=== PATIENT | female | born 1985 | race Caucasian/White ===

== ENCOUNTER 2017-07-27 13:36 | Inpatient (IN) | payer OTHER ==
[~2017-07-27] VITALS: Ht 160 cm; Wt 66.7 kg
[2017-07-30] MEDS ORDERED: PREN1TAB80 PO (04:12)
[2017-07-30 04:14] VITALS: BP 135/94
[2017-07-30] MEDS ORDERED: RINGERS SOLUTION,LACTATED 1,000 ML IV PRN (04:25)
[2017-07-30] MEDS ORDERED: OXYTOCIN 30 UNITS/LACT RINGERS 500 ML IV ONE (04:25)
[2017-07-30] MEDS ORDERED: RINGERS SOLUTION,LACTATED 1,000 ML IV SCH (04:25)
[2017-07-30] MEDS ORDERED: METOCLOPRAMIDE HCL 5 MG/ML 2 ML VIAL IVP PRN (04:30)
[2017-07-30] MEDS ORDERED: CITRIC ACID/SODIUM CITRATE 30 ML SOLUTION UDCUP PO PRN (04:30)
[2017-07-30] MEDS ORDERED: FentaNYL CITRATE-PF 100 MCG/2 ML VIAL IVP PRN ×6 (04:30→06:30)
[2017-07-30] MEDS ORDERED: LIDOCAINE HCL/PF 2% 5 ML VIAL ONE (05:09)
[2017-07-30] MEDS ORDERED: BUPIVACAINE HCL/PF 0.25% 10 ML VIAL ONE (05:09)
[2017-07-30] MEDS ORDERED: FentaNYL/BUPIV 0.125%/NS/PF 0 ML ED ONE (05:10)
[2017-07-30 05:26] LABS: BASOPHILS # (AUTO) 0.04 K/uL (0.00-0.20); BASOPHILS % (AUTO) 0.3 % (0.0-2.0); EOSINOPHILS # (AUTO) 0.03 K/uL (0.00-0.70); HEMATOCRIT 35.1 % (36-46); LYMPHOCYTES # (AUTO) 2.3 K/uL (1.0-4.8); LYMPHOCYTES % (AUTO) 17.4 % (22.0-44.0); MEAN CORPUSCULAR HEMOGLOBIN 31.3 pg (26.0-34.0); MEAN CORPUSCULAR HGB CONC 34.1 G/dL (31.0-37.0); MEAN CORPUSCULAR VOLUME 92 fL (80-100); MONOCYTES # (AUTO) 0.4 K/uL (0.1-1.0); MONOCYTES % (AUTO) 2.9 % (2.0-9.0); NEUTROPHILS # (AUTO) 10.4 K/uL (1.8-7.7); NEUTROPHILS % (AUTO) 79.1 % (40.0-70.0); RED BLOOD CELL COUNT(AUTO) 3.82 MIL/uL (4.00-5.20); RED CELL DISTRIBUTION WIDTH 12.8 % (11.5-14.5); WHITE BLOOD COUNT (AUTO) 13.2 K/uL (4.5-11.0)
[2017-07-30] MEDS ORDERED: TERBUTALINE SULFATE 1 MG/ML VIAL ONE (05:36)
[2017-07-30] MEDS ORDERED: CeFAZolin 2 GM/DEXTROSE 50 ML IV ONE (05:49)
[2017-07-30] MEDS ORDERED: FentaNYL CITRATE-PF 100 MCG/2 ML VIAL ONE (06:19)
[2017-07-30] MEDS ORDERED: NALOXONE HCL 0.4 MG/ML VIAL IVP PRN (06:30)
[2017-07-30] MEDS ORDERED: PROMETHAZINE HCL 12.5 MG in SODIUM CHLORIDE 0.9% 50 ML IV PRN (06:30)
[2017-07-30] MEDS ORDERED: MEPERIDINE-PF 25 MG/ML SYRINGE IVP PRN (06:30)
[2017-07-30] MEDS ORDERED: MORPHINE SULFATE 2 MG/ML SYRINGE IVP PRN ×2 (06:30)
[2017-07-30] MEDS ORDERED: KETOROLAC TROMETHAMINE 30 MG/ML VIAL IVP ONE (06:30)
[2017-07-30] MEDS ORDERED: DiphenhydrAMINE HCL 50 MG/ML VIAL IVP PRN ×2 (06:30)
[2017-07-30] MEDS ORDERED: ACETAMINOPHEN 1000 MG/ISO-OSM 100 ML IV ONE ×2 (06:30→07:04)
[2017-07-30] MEDS ORDERED: NALBUPHINE HCL 10 MG/ML VIAL IVP PRN (06:30)
[2017-07-30] MEDS ORDERED: MORPHINE SULFATE 10 MG/ML SYRINGE IVP PRN ×2 (06:30)
[2017-07-30] MEDS ORDERED: DEXAMETHASONE SOD PHOS 4 MG/ML VIAL IVP PRN (06:30)
[2017-07-30] MEDS ORDERED: ONDANSETRON HCL 4 MG/2 ML VIAL IVP PRN ×2 (06:30)
[2017-07-30] MEDS ORDERED: GUM MASTIC/STORAX/MSAL/ALCOHOL LIQUID 0.67 ML VIAL TP ONE (06:33)
[2017-07-30] MEDS ORDERED: OXYTOCIN 20 UNITS/LACT RINGERS 1,000 ML IV SCH (06:46)
[2017-07-30] MEDS ORDERED: OxyCODONE HCL/ACETAMINOPHEN 5-325 MG TABLET PO PRN (07:00)
[2017-07-30] MEDS ORDERED: GLYCERIN/WITCH HAZEL LEAF 40 PADS JAR TP PRN (07:00)
[2017-07-30] MEDS ORDERED: OXYGEN THERAPY IH SCH ×3 (08:00)
[2017-07-30] MEDS ORDERED: NALBUPHINE HCL 10 MG/ML VIAL IVP ONE (09:00)
[2017-07-30] MEDS ORDERED: RINGERS SOLUTION,LACTATED 1,000 ML IV ONE (10:31)
[2017-07-30] MEDS ORDERED: LIDOCAINE HCL/PF 2% 5 ML VIAL INJ ONE (12:00)
[2017-07-30] MEDS ORDERED: DEXAMETHASONE SOD PHOS 4 MG/ML VIAL IVP ONE (12:00)
[2017-07-30] MEDS ORDERED: ONDANSETRON HCL 4 MG/2 ML VIAL IVP ONE (12:00)
[2017-07-30] MEDS ORDERED: PROPOFOL 1% 20 ML VIAL IVP ONE (12:00)
[2017-07-30] MEDS ORDERED: OXYTOCIN 10 UNITS/ML VIAL IM ONE (12:00)
[2017-07-30] MEDS ORDERED: SUCCINYLCHOLINE CHLORIDE 20 MG/ML 10 ML VIAL IVP ONE (12:00)
[2017-07-30] MEDS ORDERED: EPHEDrine SULFATE 50 MG/ML VIAL IM ONE (12:00)
[2017-07-30] MEDS: ACETAMINOPHEN 1000 MG/ISO-OSM 100 ML IV SCH ×2 (15:05→20:30)
[2017-07-30] MEDS: KETOROLAC TROMETHAMINE 30 MG/ML VIAL IVP SCH ×2 (15:06→21:43)
[2017-07-30] MEDS: DEXTROSE 5%-0.45% SODIUM CHL 1,000 ML IV SCH (17:34)
[2017-07-31] MEDS: FentaNYL CITRATE-PF 100 MCG/2 ML VIAL IVP PRN ×2 (01:04→05:41)
[2017-07-31] MEDS: DEXTROSE 5%-0.45% SODIUM CHL 1,000 ML IV SCH ×2 (01:39→09:40)
[2017-07-31 06:15] LABS: BASOPHILS % (AUTO) 0.8 % (0.0-2.0); EOSINOPHILS # (AUTO) 0.01 K/uL (0.00-0.70); EOSINOPHILS % (AUTO) 0.06 % (1.0-6.0); HEMATOCRIT 23.7 % (36-46); HEMOGLOBIN 8.1 g/dL (12.0-16.0); LYMPHOCYTES % (AUTO) 15.8 % (22.0-44.0); MEAN CORPUSCULAR HEMOGLOBIN 30.9 pg (26.0-34.0); MEAN CORPUSCULAR VOLUME 91 fL (80-100); MONOCYTES # (AUTO) 0.5 K/uL (0.1-1.0); NEUTROPHILS # (AUTO) 10.2 K/uL (1.8-7.7); NEUTROPHILS % (AUTO) 79.4 % (40.0-70.0); RED BLOOD CELL COUNT(AUTO) 2.61 MIL/uL (4.00-5.20); RED CELL DISTRIBUTION WIDTH 13.3 % (11.5-14.5); WHITE BLOOD COUNT (AUTO) 12.9 K/uL (4.5-11.0)
[2017-07-31] MEDS: IBUPROFEN 600 MG TABLET PO PRN ×2 (08:35→16:54)
[2017-07-31] MEDS: MAGNESIUM HYDROXIDE SUSPENSION 30 ML UDCUP PO SCH ×2 (08:39→21:08)
[2017-07-31] MEDS: OxyCODONE HCL/ACETAMINOPHEN 5-325 MG TABLET PO PRN (21:08)
[2017-08-01] MEDS: OxyCODONE HCL/ACETAMINOPHEN 5-325 MG TABLET PO PRN ×2 (05:13→16:52)
[2017-08-01] MEDS: MAGNESIUM HYDROXIDE SUSPENSION 30 ML UDCUP PO SCH ×2 (08:45→21:00)
[2017-08-01] MEDS: IBUPROFEN 600 MG TABLET PO PRN ×2 (08:46→14:06)
[2017-08-01] MEDS ORDERED: IBUP-2070 PO (17:35)
[2017-08-01] MEDS ORDERED: FERR-89 PO (17:35)
[2017-08-01] MEDS ORDERED: DSS100 PO (17:35)
[2017-08-01] MEDS ORDERED: PERCT PO (17:35)
[2017-08-02] MEDS: OxyCODONE HCL/ACETAMINOPHEN 5-325 MG TABLET PO PRN (00:29)
[2017-08-02] MEDS: IBUPROFEN 600 MG TABLET PO PRN (08:43)
[2017-08-02] MEDS: MAGNESIUM HYDROXIDE SUSPENSION 30 ML UDCUP PO SCH (08:45)
== END 2017-08-02 12:35 | disposition home or self-care (01) | DRG 766 ==
LOC: OBSVTOIN 07-30 02:59 → 4S 07-30 02:59
PROVIDERS: ADMIT Obstetrics & Gynecology; ATTEND Obstetrics & Gynecology
PROC: 10D00Z1 Extraction of Products of Conception, Low, Open Approach (ICD-10-PCS; principal; 2017-07-30)
DX: O76 Abnormality in fetal heart rate and rhythm complicating labor and delivery (principal); Z37.0 Single live birth; Z3A.40 40 weeks gestation of pregnancy; Z53.29 Procedure and treatment not carried out because of patient's decision for other reasons
CPT/HCPCS: 86850; 86900; 86901; J0131; J0330; J0690; J1100; J1885; J2405; J2590; J2704; J3010; J3105; J3490; J7120